=== PATIENT | female | born 1995 | race Caucasian/White ===

== ENCOUNTER 2016-07-29 21:13 | Emergency (ER) | payer SELFPAY ==
[2016-07-29 21:21] VITALS: BP 148/67
--- NOTE | 2016-07-29 21:31 | UC ---
Upper Extremity HPI - HPI Summary HPI Summary: patient slammed hand in care door yesterdy, has pain in the metacarpals and numbness in her pinky - History of Current Complaint Chief Complaint: UCUpperExtremity Stated Complaint: RIGHT HAND INJURY Time Seen by Provider: 07/29/16 21:25 Hx Obtained From: Patient Hx Last Menstrual Period: 07/05/16 ?: No Onset/Duration: Sudden Onset, Lasting Days Severity Initially: Moderate Severity Currently: Moderate Pain Intensity: 6 Pain Scale Used: 0-10 Numeric Location Of Pain: Is Discrete @ - right hand Character: Throbbing Aggravating Factor(s): Movement Alleviating Factor(s): Nothing Associated Signs And Symptoms: Positive: Negative - Allergies/Home Medications Allergies/Adverse Reactions: Allergies Allergy/AdvReac Type Severity Reaction Status Date / Time small animals Allergy Anaphylatic Uncoded 07/29/16 21:21 Shock PMH/Surg Hx/FS Hx/Imm Hx Previously Healthy: Yes Endocrine History Of: Denies: Diabetes Cardiovascular History Of: Denies: Hypertension, Pacemaker/ICD Respiratory History Of: Reports: Asthma GI/ History Of: Denies: Renal Disease Psychological History Of: Reports: Anxiety, Depression - Surgical History Surgical History: Yes Surgery Procedure, Year, and Place: T&A, gallbladder - Family History Known Family History: Positive: Hypertension, Diabetes, Other - she does not know of any problems in family, no skin cancers known. No - Social History Alcohol Use: None Substance Use Type: None Smoking Status (MU): Heavy Every Day Tobacco Smoker Type: Cigarettes, eCigarettes Amount Used/How Often: 1/2 ppd Length of Time of Smoking/Using Tobacco: started age 16 Have You Smoked in the Last Year: Yes Household Exposure Type: Cigarettes - Immunization History Most Recent Influenza Vaccination: Not the 2016/2016 Season Vaccination Up to Date: Yes Review of Systems Constitutional: Negative Skin: Negative Eyes: Negative ENT: Negative Respiratory: Negative Cardiovascular: Negative Gastrointestinal: Negative Genitourinary: Negative Motor: Negative Neurovascular: Negative Musculoskeletal: Arthralgia, Myalgia Neurological: Negative Psychological: Negative All Other Systems Reviewed And Are Negative: Yes Physical Exam Triage Information Reviewed: Yes Appearance: Well-Appearing, Pain Distress, Obese Vital Signs: Initial Vital Signs Temp 97.9 F 07/29/16 21:18 Pulse 79 01/13/17 21:18 Resp 18 07/29/16 21:18 BP 148/67 07/29/16 21:18 Pulse Ox 100 07/29/16 21:18 Vital Signs Reviewed: Yes Eye Exam: Normal Eyes: Positive: Conjunctiva Clear ENT Exam: Normal ENT: Positive: Hearing grossly normal, Pharynx normal, TMs normal Dental Exam: Normal Neck exam: Normal Neck: Positive: Supple, Nontender, No Lymphadenopathy Respiratory Exam: Normal Respiratory: Positive: Chest non-tender, Lungs clear, Normal breath sounds Cardiovascular Exam: Normal Cardiovascular: Positive: RRR, No Murmur, Pulses Normal Abdominal Exam: Normal Abdomen Description: Positive: Nontender, No Organomegaly, Soft Bowel Sounds: Positive: Present Musculoskeletal Exam: Normal Musculoskeletal: Positive: Strength Intact, ROM Limited @ - finger flx and wrist ext Neurological Exam: Normal Neurological: Positive: Alert, Muscle Tone Normal Psychological Exam: Normal Skin Exam: Normal Upper Extremity Course/Dx - Differential Dx/Diagnosis Differential Diagnosis/HQI/PQRI: Fracture (Closed), Strain, Sprain Provider Diagnoses: hand contusion Discharge - Discharge Plan Condition: Stable Disposition: HOME Patient Education Materials: Contusion in Adults (ED) Referrals: Pooja Whipple PA [Primary Care Provider] - Additional Instructions: continue to use ibuprofen and tylenol for pain. use the su wrap to reduce swelling and provide support. The pain should diminish over the next few days.
--- NOTE | 2016-07-29 21:49 | RAD ---
Indication: Pain across the top of the metacarpals and along the fifth proximal phalanx following closing hand in door. Comparison: July 02, 2009 RIGHT wrist Technique: AP and lateral views RIGHT hand. REPORT AND IMPRESSION: Negative for fracture or malalignment. Mild soft tissue swelling most prominent over the dorsum of the hand at the second through fifth digits.
== END 2016-07-29 21:55 | disposition home or self-care (01) ==
LOC: UCCORT 21:13
DX: S60.221A Contusion of right hand, initial encounter (principal); W23.0XXA Caught, crushed, jammed, or pinched between moving objects, initial encounter; Y93.9 Activity, unspecified; Y92.810 Car as the place of occurrence of the external cause; F17.210 Nicotine dependence, cigarettes, uncomplicated
CPT/HCPCS: 99212; G0463

== ENCOUNTER 2016-09-14 09:54 | Emergency (ER) | payer SELFPAY ==
--- NOTE | 2016-09-14 12:30 | UC ---
Complaint Female HPI - HPI Summary HPI Summary: Patient has had left sided abdominal pain with frequent urination for the past 1 week. now has left sided flank pain. denies fever. - History Of Current Complaint Chief Complaint: UCAbdominalPain Stated Complaint: LEFT SIDE PAIN 1 WEEK Time Seen by Provider: 09/14/16 12:16 Hx Obtained From: Patient Hx Last Menstrual Period: 09/04/16 ?: No Onset/Duration: Sudden Onset, Lasting Days Timing: Constant Severity Initially: Moderate Severity Currently: Moderate Pain Intensity: 6 Pain Scale Used: 0-10 Numeric Character: Cramping Aggravating Factor(s): Urination Associated Signs And Symptoms: Positive: Back Pain - Risk Factors Ectopic Risk Factor: Negative Ovarian Torsion Risk Factor: Negative - Allergies/Home Medications Allergies/Adverse Reactions: Allergies Allergy/AdvReac Type Severity Reaction Status Date / Time small animals Allergy Anaphylatic Uncoded 09/14/16 10:09 Shock PMH/Surg Hx/FS Hx/Imm Hx Previously Healthy: Yes Endocrine History Of: Denies: Diabetes Cardiovascular History Of: Denies: Hypertension, Pacemaker/ICD Respiratory History Of: Reports: Asthma GI/ History Of: Denies: Renal Disease Psychological History Of: Reports: Anxiety, Depression - Surgical History Surgical History: Yes Surgery Procedure, Year, and Place: T&A, gallbladder - Family History Known Family History: Positive: Hypertension, Diabetes, Other - she does not know of any problems in family, no skin cancers known. No - Social History Alcohol Use: None Substance Use Type: None Smoking Status (MU): Heavy Every Day Tobacco Smoker Type: Cigarettes, eCigarettes Amount Used/How Often: 1/2 ppd Length of Time of Smoking/Using Tobacco: started age 16 Have You Smoked in the Last Year: Yes Household Exposure Type: Cigarettes - Immunization History Most Recent Influenza Vaccination: Not the 2016/2017 Season Most Recent Tetanus Shot: unknown, maybe 2016 Vaccination Up to Date: Yes Review of Systems Constitutional: Negative Skin: Negative Eyes: Negative ENT: Negative Respiratory: Negative Cardiovascular: Negative Gastrointestinal: Abdominal Pain Genitourinary: Frequency, Urgency Motor: Negative Musculoskeletal: Negative, Myalgia Neurological: Negative Psychological: Negative All Other Systems Reviewed And Are Negative: Yes Physical Exam Triage Information Reviewed: Yes Appearance: No Pain Distress, Well-Nourished, Ill-Appearing Vital Signs: Initial Vital Signs Temp 98.2 F 09/14/16 10:04 Pulse 78 09/14/16 10:04 Resp 16 09/14/16 10:04 BP 150/69 09/14/16 10:04 Pulse Ox 99 09/14/16 10:04 Vital Signs Reviewed: Yes Eye Exam: Normal Eyes: Positive: Conjunctiva Clear ENT Exam: Normal ENT: Positive: Normal ENT inspection, Hearing grossly normal, Pharynx normal, TMs normal Dental Exam: Normal Neck exam: Normal Neck: Positive: Supple, Nontender, No Lymphadenopathy Respiratory Exam: Normal Respiratory: Positive: Chest non-tender, Lungs clear, Normal breath sounds Cardiovascular Exam: Normal Cardiovascular: Positive: RRR, No Murmur, Pulses Normal Abdominal Exam: Normal Abdomen Description: Positive: Nontender, No Organomegaly, Soft Bowel Sounds: Positive: Present Musculoskeletal Exam: Normal Musculoskeletal: Positive: Strength Intact, ROM Intact, No Edema Neurological Exam: Normal Neurological: Positive: Alert, Muscle Tone Normal Psychological Exam: Normal Skin Exam: Normal Complaint Female Dx - Course Course Of Treatment: hx obtained, exam performed, meds reviewed, prescribed keflex for her UTI, recommend follow up in 2 days if symptoms persist or she becomes feverish. - Differential Dx/Diagnosis Differential Diagnosis/HQI/PQRI: Sexually Transmitted Disease, Ureteral Stone, Urinary Tract Infection Provider Diagnoses: UTI. flank Pain Discharge - Discharge Plan Condition: Stable Disposition: HOME Prescriptions: Cephalexin CAP* [Keflex CAP*] 500 mg PO BID #14 cap Patient Education Materials: Flank Pain (ED) Forms: *Work Release Referrals: Pooja Whipple PA [Primary Care Provider] - Additional Instructions: Take the medication as prescribed. Increase your fluid intake and uses ibuprofen for pain. I recommend follow up in 2 days if your symptoms persis or you develop a fever.
[2016-09-14 12:49] VITALS: BP 143/73
== END 2016-09-14 12:49 | disposition home or self-care (01) ==
LOC: UCCORT 09:54
DX: N39.0 Urinary tract infection, site not specified (principal); M54.9 Dorsalgia, unspecified; F17.210 Nicotine dependence, cigarettes, uncomplicated; Z32.02 Encounter for pregnancy test, result negative
CPT/HCPCS: 81025; 87086; 99212; G0463

== ENCOUNTER 2016-11-25 19:06 | Emergency (ER) | payer SELFPAY ==
[2016-11-25 19:40] VITALS: BP 144/81
--- NOTE | 2016-11-25 19:52 | UC ---
Throat Pain/Nasal Filippo HPI - HPI Summary HPI Summary: throat pain, swelling bodyaches and fatigue for 2 weeks. complaining of coughing up thick mucus - History of Current Complaint Chief Complaint: UCGeneralIllness Stated Complaint: ST/ CHEST FILIPPO/HURTS TO SWALLOW Time Seen by Provider: 11/25/16 19:41 Hx Obtained From: Patient Hx Last Menstrual Period: 10/31/16 ?: No Onset/Duration: Sudden Onset, Lasting Days Severity: Moderate Cough: None Associated Signs & Symptoms: Positive: Dysphagia, Sinus Discomfort - Allergies/Home Medications Allergies/Adverse Reactions: Allergies Allergy/AdvReac Type Severity Reaction Status Date / Time small animals Allergy Anaphylatic Uncoded 11/25/16 19:40 Shock Home Medications: Home Medications Omeprazole CAP* [Prilosec CAP* 20 MG] 20 mg PO DAILY 11/25/16 [History Confirmed 11/25/16] PMH/Surg Hx/FS Hx/Imm Hx Previously Healthy: Yes Endocrine History Of: Denies: Diabetes Cardiovascular History Of: Denies: Hypertension, Pacemaker/ICD Respiratory History Of: Reports: Asthma GI/ History Of: Denies: Renal Disease Psychological History Of: Reports: Anxiety, Depression - Surgical History Surgical History: Yes Surgery Procedure, Year, and Place: T&A, gallbladder - Family History Known Family History: Positive: Hypertension, Diabetes, Other - she does not know of any problems in family, no skin cancers known. No - Social History Alcohol Use: None Substance Use Type: None Smoking Status (MU): Heavy Every Day Tobacco Smoker Type: Cigarettes, eCigarettes Amount Used/How Often: 1/2 ppd Length of Time of Smoking/Using Tobacco: started age 16 Have You Smoked in the Last Year: Yes Household Exposure Type: Cigarettes - Immunization History Most Recent Influenza Vaccination: Not the 2016/2017 Season Most Recent Tetanus Shot: unknown, maybe 2016 Vaccination Up to Date: Yes Review of Systems Constitutional: Chills, Fatigue Skin: Negative Eyes: Negative ENT: Sore Throat Respiratory: Negative Cardiovascular: Negative Gastrointestinal: Negative Genitourinary: Negative Motor: Negative Neurovascular: Negative Musculoskeletal: Myalgia Neurological: Headache Psychological: Negative All Other Systems Reviewed And Are Negative: Yes Physical Exam Triage Information Reviewed: Yes Appearance: Well-Nourished, Ill-Appearing, Pain Distress Vital Signs: Initial Vital Signs Temp 99.1 F 11/25/16 19:35 Pulse 85 11/25/16 19:35 Resp 16 11/25/16 19:35 BP 144/81 11/25/16 19:35 Pulse Ox 99 11/25/16 19:35 Vital Signs Reviewed: Yes Eye Exam: Normal Eyes: Positive: Conjunctiva Clear ENT: Positive: Pharyngeal erythema, TM bulging, Tonsillar swelling Dental Exam: Normal Neck exam: Normal Neck: Positive: Supple, Nontender, Enlarged Nodes @ - bilateral cervical, painful Respiratory Exam: Normal Respiratory: Positive: Chest non-tender, Lungs clear, Normal breath sounds Cardiovascular Exam: Normal Cardiovascular: Positive: RRR, No Murmur, Pulses Normal Abdominal Exam: Normal Abdomen Description: Positive: Nontender, No Organomegaly, Soft Bowel Sounds: Positive: Present Musculoskeletal Exam: Normal Musculoskeletal: Positive: Strength Intact, ROM Intact, No Edema Neurological Exam: Normal Neurological: Positive: Alert, Muscle Tone Normal Psychological Exam: Normal Skin Exam: Normal Throat Pain/Nasal Course/Dx - Course Course Of Treatment: hx obtained, exam performed, meds reviewed, given ibuprofen , rapid strep obtained. and is negative, mono spopt obtained, recommend mucinex to breatk up the mucus - Differential Dx/Diagnosis Differential Diagnosis/HQI/PQRI: Influenza, Laryngitis, Otitis Media, Pharyngitis, Sinusitis, URI Provider Diagnoses: pharyngitis. lymphadenopathy. cough. myalgia. possible mononucleosis Discharge - Discharge Plan Condition: Stable Disposition: HOME Patient Education Materials: Pharyngitis (ED) Additional Instructions: 1. your strep was negative 2. You mono test will be availabe tomorrow, we will call with any positive result 3. Meanwhilte, increase your fluid intake,warm fluids help break up the mucous 3, Rest and Ibuprofen for pain
[2016-11-25] MEDS ORDERED: Ibuprofen TAB* 600 MG PO ONE (20:17)
[2016-11-26 14:44] LABS: EBV Response YES
[2016-11-26 14:45] LABS: Mono Internal Control QC Line Present; Mono Kit Lot# 6070004
[2016-11-26 14:46] LABS: Manual Entry Verification AS
[2016-11-29 13:11] LABS: EBV Capsid Ag IgG Ab Positive (Negative); EBV Capsid Ag IgM Ab Negative (Negative)
== END 2016-11-25 20:36 | disposition home or self-care (01) ==
LOC: UCCORT 19:06
DX: J02.9 Acute pharyngitis, unspecified (principal); R59.1 Generalized enlarged lymph nodes; R05 Cough; M79.1 Myalgia; J45.909 Unspecified asthma, uncomplicated; F41.8 Other specified anxiety disorders; Z90.49 Acquired absence of other specified parts of digestive tract; F17.210 Nicotine dependence, cigarettes, uncomplicated
CPT/HCPCS: 36415; 86308; 86664; 86665; 87651; 99212; A9270-GY; G0463

== ENCOUNTER 2017-04-01 21:03 | Emergency (ER) | payer SELFPAY ==
[2017-04-01 21:20] VITALS: BP 149/89
[2017-04-01] MEDS ORDERED: Azithromycin TAB* 250 MG PO ONE (21:46)
[2017-04-01] MEDS ORDERED: LoraTADine TAB(NF) 10 MG TAB (AUTOSUB to CETIRIZINE) PO ONE (21:47)
[2017-04-01] MEDS ORDERED: Benzonatate CAP* 100 MG PO ONE (21:47)
--- NOTE | 2017-04-01 22:12 | UC ---
Respiratory Complaint HPI - HPI Summary HPI Summary: Pt reports sudden onset nasal congestion, sinus pressure, frontal and maxillary , cough and bronchospasm. - History of Current Complaint Chief Complaint: UCRespiratory Stated Complaint: COUGH/CONGESTION/HEADACHE Time Seen by Provider: 04/01/17 21:41 Hx Obtained From: Patient Hx Last Menstrual Period: 02/27/17 ?: No Onset/Duration: Sudden Onset Timing: Constant Severity Initially: Moderate Severity Currently: Moderate Pain Intensity: 0 Pain Scale Used: 0-10 Numeric Character: Cough: Nonproductive Aggravating Factors: Allergens, Deep Breaths, Recumbent Position Alleviating Factors: Nothing Associated Signs And Symptoms: Positive: URI, Nasal Congestion, Sinus Discomfort Related History: Seasonal Allergies - Risk Factors Cardiac Risk Factors: Negative Pseudomonas Risk Factors: Chronic Lung Disease - asthma Tuberculosis Risk Factors: Negative - Allergies/Home Medications Allergies/Adverse Reactions: Allergies Allergy/AdvReac Type Severity Reaction Status Date / Time small animals Allergy Anaphylatic Uncoded 04/01/17 21:20 Shock PMH/Surg Hx/FS Hx/Imm Hx Previously Healthy: Yes Respiratory History: Asthma - Surgical History Surgical History: Yes Surgery Procedure, Year, and Place: T&A, gallbladder - Family History Known Family History: Positive: Hypertension, Diabetes, Other - she does not know of any problems in family, no skin cancers known. No - Social History Occupation: Employed Full-time Lives: With Family Alcohol Use: None Substance Use Type: None Smoking Status (MU): Heavy Every Day Tobacco Smoker Type: Cigarettes, eCigarettes Amount Used/How Often: 1/2 ppd Length of Time of Smoking/Using Tobacco: started age 16 Have You Smoked in the Last Year: Yes Household Exposure Type: Cigarettes - Immunization History Most Recent Influenza Vaccination: Not the 2016/2016 Season Most Recent Tetanus Shot: unknown, maybe 2016 Vaccination Up to Date: Yes Review of Systems Constitutional: Fatigue Skin: Negative Eyes: Negative ENT: Sinus Congestion, Sinus Pain/Tenderness Respiratory: Cough, Other - bronchospasm Cardiovascular: Negative Gastrointestinal: Negative Genitourinary: Negative Motor: Negative Neurovascular: Negative Musculoskeletal: Negative Neurological: Headache Psychological: Negative Is Patient Immunocompromised?: No All Other Systems Reviewed And Are Negative: Yes Physical Exam Triage Information Reviewed: Yes Appearance: Ill-Appearing Vital Signs: Initial Vital Signs Temp 98.3 F 04/01/17 21:15 Pulse 83 04/01/17 21:15 Resp 18 04/01/17 21:15 BP 149/89 04/01/17 21:15 Pulse Ox 99 04/01/17 21:15 Vital Signs Reviewed: Yes Eye Exam: Normal ENT: Positive: Nasal congestion, Other: - maxillary and frontal sinus tenderness Dental Exam: Normal Neck exam: Normal Respiratory Exam: Other Respiratory: Positive: Wheezing Cardiovascular Exam: Normal Musculoskeletal Exam: Normal Neurological Exam: Normal Psychological Exam: Normal Skin Exam: Normal UC Diagnostic Evaluation - Laboratory O2 Sat by Pulse Oximetry: 99 Respiratory Course/Dx - Differential Dx/Diagnosis Differential Diagnosis/HQI/PQRI: Bronchitis, Other - URI Provider Diagnoses: Bronchitis Discharge - Discharge Plan Condition: Stable Disposition: HOME Prescriptions: Azithromycin TAB* [Zithromax TAB (Z-ASHWIN) 250 mg #6 tabs] 250 mg PO DAILY #4 tab Benzonatate CAP* [Tessalon 100 MG CAP*] 100 mg PO Q8H PRN #21 cap PRN Reason: Cough Loratadine & Pseudoephedrine [Loratadine/Pseudoephedrin 10-240 mg] 1 tab PO DAILY #14 tab Patient Education Materials: Acute Bronchitis (ED), Bronchospasm (ED) Forms: *Work Release Referrals: MARIA ISABEL Aldridge [Primary Care Provider] -
== END 2017-04-01 21:58 | disposition home or self-care (01) ==
LOC: UCCORT 21:03
DX: J40 Bronchitis, not specified as acute or chronic (principal); J06.9 Acute upper respiratory infection, unspecified; Z87.891 Personal history of nicotine dependence; Z77.22 Contact with and (suspected) exposure to environmental tobacco smoke (acute) (chronic); Z77.29 Contact with and (suspected) exposure to other hazardous substances
CPT/HCPCS: 99212; A9270-GY; G0463

== ENCOUNTER 2017-04-28 10:55 | Emergency (ER) | payer SELFPAY ==
--- NOTE | 2017-04-28 11:37 | UC ---
Hip/Pelvis Pain - HPI Summary HPI Summary: 21 YEAR OLD FEMALE PRESENTS WITH COMPLAINS OF RIGHT LEG/HIP PAIN WITH NO TRAUMA. - History Of Current Complaint Chief Complaint: UCLowerExtremity Stated Complaint: RIGHT HIP PAIN Time Seen by Provider: 04/28/17 11:18 Hx Obtained From: Patient Hx Last Menstrual Period: 03/30/17 Onset/Duration: Sudden Onset Severity Initially: Moderate Severity Currently: Moderate Character Of Pain: Sharp Aggravating Factor(s): Nothing Alleviating Factor(s): Position - Allergies/Home Medications Allergies/Adverse Reactions: Allergies Allergy/AdvReac Type Severity Reaction Status Date / Time small animals Allergy Anaphylatic Uncoded 04/28/17 11:27 Shock PMH/Surg Hx/FS Hx/Imm Hx Previously Healthy: Yes - Surgical History Surgical History: Yes Surgery Procedure, Year, and Place: T&A, gallbladder - Family History Known Family History: Positive: Hypertension, Diabetes, Other - she does not know of any problems in family, no skin cancers known. No - Social History Alcohol Use: None Substance Use Type: None Smoking Status (MU): Light Every Day Tobacco Smoker Type: Cigarettes, eCigarettes Amount Used/How Often: 1/2 ppd Length of Time of Smoking/Using Tobacco: started age 16 Have You Smoked in the Last Year: Yes Household Exposure Type: Cigarettes - Immunization History Most Recent Influenza Vaccination: Not the 2015/2016 Season Most Recent Tetanus Shot: unknown, maybe 2016 Vaccination Up to Date: Yes Review of Systems Constitutional: Negative Skin: Negative Eyes: Negative ENT: Negative Respiratory: Negative Cardiovascular: Negative Gastrointestinal: Negative Genitourinary: Negative Motor: Negative Neurovascular: Negative Musculoskeletal: Arthralgia, Myalgia, Other: - RIGHT LATERAL LEG/HIP PAIN Neurological: Negative Psychological: Negative All Other Systems Reviewed And Are Negative: Yes Physical Exam Triage Information Reviewed: Yes Vital Signs: Initial Vital Signs Temp 37.0 C 04/28/17 11:15 Pulse 76 04/28/17 11:15 Resp 24 04/28/17 11:15 BP 166/97 04/28/17 11:15 Vital Signs Reviewed: Yes Eye Exam: Normal ENT Exam: Normal Dental Exam: Normal Neck exam: Normal Neck: Positive: 1 Respiratory Exam: Normal Cardiovascular Exam: Normal Abdominal Exam: Normal Musculoskeletal: Negative: Other: - RIGHT LATERAL LEG/HIP PAIN Neurological Exam: Normal Psychological Exam: Normal Skin Exam: Normal Hip Injury Course/Dx - Differential Dx/Diagnosis Provider Diagnoses: RIGHT LATERAL HIP/LEG PAIN Discharge - Discharge Plan Condition: Stable Disposition: HOME Prescriptions: Meloxicam [Mobic] 7.5 mg PO BID #30 tab Methocarbamol TAB* [Robaxin 500 MG TAB*] 500 mg PO TID PRN #30 tab PRN Reason: Spasms - Back Patient Education Materials: Arthralgia (ED), Hip Pain (ED), Piriformis Syndrome (ED) Referrals: MARIA ISABEL Aldridge [Primary Care Provider] - [facility] [place] Physical therapy,PT [Medical Doctor] -
[2017-04-28 12:06] VITALS: BP 142/85
== END 2017-04-28 12:06 | disposition home or self-care (01) ==
LOC: UCCORT 10:55
DX: M25.551 Pain in right hip (principal); F17.210 Nicotine dependence, cigarettes, uncomplicated
CPT/HCPCS: 99212; G0463

== ENCOUNTER 2017-06-28 15:10 | Emergency (ER) | payer SELFPAY ==
[2017-06-28 15:40] VITALS: BP 133/81
--- NOTE | 2017-06-28 16:05 | UC ---
Respiratory Complaint HPI - HPI Summary HPI Summary: Pt c/o of cough, sore throat, generalized malaise, nasal congestion and wheezing X 3 days. - History of Current Complaint Chief Complaint: UCRespiratory Stated Complaint: SORE THROAT/RIGHT EAR/CHEST CONGESTION Time Seen by Provider: 06/28/17 15:57 Hx Obtained From: Patient Hx Last Menstrual Period: 06/23/17 ?: No Onset/Duration: Gradual Onset, Lasting Days, Still Present Severity Initially: Mild Severity Currently: Mild Character: Cough: Nonproductive Aggravating Factors: Exertion, Deep Breaths, Recumbent Position Alleviating Factors: Nothing Associated Signs And Symptoms: Positive: URI, Nasal Congestion - Risk Factors Pulmonary Embolism Risk Factors: Smoking Cardiac Risk Factors: Smoking Pseudomonas Risk Factors: Negative Tuberculosis Risk Factors: Negative - Allergies/Home Medications Allergies/Adverse Reactions: Allergies Allergy/AdvReac Type Severity Reaction Status Date / Time small animals Allergy Anaphylatic Uncoded 06/28/17 15:31 Shock PMH/Surg Hx/FS Hx/Imm Hx Previously Healthy: Yes Respiratory History: Asthma - Surgical History Surgical History: Yes Surgery Procedure, Year, and Place: T&A, gallbladder - Family History Known Family History: Positive: Hypertension, Diabetes, Other - she does not know of any problems in family, no skin cancers known. No - Social History Occupation: Employed Full-time Lives: With Family Alcohol Use: Rare Substance Use Type: None Smoking Status (MU): Light Every Day Tobacco Smoker Type: Cigarettes, eCigarettes Amount Used/How Often: 1/2 ppd Length of Time of Smoking/Using Tobacco: started age 16 Have You Smoked in the Last Year: Yes Household Exposure Type: Cigarettes - Immunization History Most Recent Influenza Vaccination: no Most Recent Tetanus Shot: unknown, maybe 2016 Vaccination Up to Date: Yes Review of Systems Constitutional: Fatigue Skin: Negative Eyes: Negative ENT: Sore Throat Respiratory: Cough Cardiovascular: Negative Gastrointestinal: Negative Genitourinary: Negative Motor: Negative Neurovascular: Negative Musculoskeletal: Negative Neurological: Negative Psychological: Negative Is Patient Immunocompromised?: No All Other Systems Reviewed And Are Negative: Yes Physical Exam Triage Information Reviewed: Yes Appearance: Well-Appearing Vital Signs: Initial Vital Signs Temp 98 F 06/28/17 15:26 Pulse 77 06/28/17 15:26 Resp 14 06/28/17 15:26 BP 133/81 06/28/17 15:26 Pulse Ox 100 12/13/17 15:26 Vital Signs Reviewed: Yes Eye Exam: Normal ENT Exam: Other ENT: Positive: Nasal congestion Dental Exam: Normal Neck exam: Other Neck: Positive: Enlarged Nodes @ - anterior cervical Respiratory Exam: Normal Respiratory: Positive: Decreased breath sounds - bilateral bases Cardiovascular Exam: Normal Musculoskeletal Exam: Normal Neurological Exam: Normal Psychological Exam: Normal Skin Exam: Normal UC Diagnostic Evaluation - Laboratory O2 Sat by Pulse Oximetry: 100 Respiratory Course/Dx - Differential Dx/Diagnosis Differential Diagnosis/HQI/PQRI: Bronchitis, Other - uri Provider Diagnoses: Bronchitis Discharge - Discharge Plan Condition: Stable Disposition: HOME Prescriptions: Azithromycin TAB* [Zithromax TAB (Z-ASHWIN) 250 mg #6 tabs] 2 tab PO .TODAY, THEN 1 DAILY #1 ashwin Benzonatate CAP* [Tessalon 100 MG CAP*] 100 mg PO Q8H PRN #21 cap PRN Reason: Cough Patient Education Materials: Acute Bronchitis (ED) Referrals: MARIA ISABEL Aldridge [Primary Care Provider] - If Needed
== END 2017-06-28 16:16 | disposition home or self-care (01) ==
LOC: UCCORT 15:10
DX: J40 Bronchitis, not specified as acute or chronic (principal); F17.210 Nicotine dependence, cigarettes, uncomplicated
CPT/HCPCS: 99212; G0463

== ENCOUNTER 2017-11-27 16:46 | Emergency (ER) | payer SELFPAY ==
[2017-11-27 17:10] VITALS: BP 157/70
--- NOTE | 2017-11-27 17:24 | UC ---
UC General HPI - HPI Summary HPI Summary: PT IS C/O PAIN TO HER R LOW BACK TOOTH FOR 3-4 DAYS. YESTERDAY, THE AREA AROUND THE TOOTH STARTED TO SWELL. STATES THE TOOTH UIS BAD AND SHE HASN'T BEEN TO A DENTIST SINCE CHILDHOOD. - History of Current Complaint Hx Obtained From: Patient Hx Last Menstrual Period: 10/22/17 Onset/Duration: Gradual Onset Timing: Constant Pain Intensity: 8 Aggravating: CHEWING Alleviating: NOTHING-TAKING MOTRIN Associated Signs & Symptoms: Positive: Edema. Negative: Fever, Headache <Jolly Hernadez - Last Filed: 11/27/17 17:28> <Destiny Madrid - Last Filed: 11/27/17 18:07> - History of Current Complaint Chief Complaint: UCDentalProblem Stated Complaint: FACIAL SWELLING, APPETITE LOSS Time Seen by Provider: 11/27/17 17:14 - Allergy/Home Medications Allergies/Adverse Reactions: Allergies Allergy/AdvReac Type Severity Reaction Status Date / Time small animals Allergy Anaphylatic Uncoded 11/27/17 17:11 Shock PMH/Surg Hx/FS Hx/Imm Hx Respiratory History: Asthma Psychological History: Depression - Surgical History Surgical History: Yes Surgery Procedure, Year, and Place: T&A, gallbladder - Family History Known Family History: Positive: Hypertension, Diabetes, Other - she does not know of any problems in family, no skin cancers known. No - Social History Lives: With Family Alcohol Use: None Substance Use Type: None Smoking Status (MU): Light Every Day Tobacco Smoker Type: Cigarettes, eCigarettes Amount Used/How Often: 1/4 ppd Length of Time of Smoking/Using Tobacco: started age 16 Have You Smoked in the Last Year: Yes Household Exposure Type: Cigarettes - Immunization History Most Recent Influenza Vaccination: Not the 2016/2017 Season Most Recent Tetanus Shot: unknown, maybe 2016 Vaccination Up to Date: Yes <Jolly Hernadez - Last Filed: 11/27/17 17:28> Review of Systems Constitutional: Negative Skin: Negative Eyes: Negative ENT: Dental Pain Respiratory: Negative Cardiovascular: Negative Gastrointestinal: Negative Genitourinary: Negative Motor: Negative Neurovascular: Negative Musculoskeletal: Negative Neurological: Negative Psychological: Negative Is Patient Immunocompromised?: No All Other Systems Reviewed And Are Negative: Yes <Jolly Hernadez - Last Filed: 11/27/17 17:28> Physical Exam Triage Information Reviewed: Yes Appearance: Well-Appearing Vital Signs: Initial Vital Signs Temp 97.3 F 11/27/17 17:03 Pulse 86 11/27/17 17:03 Resp 16 11/27/17 17:03 BP 157/70 11/27/17 17:03 Pulse Ox 99 11/27/17 17:03 Vital Signs Reviewed: Yes Eyes: Positive: Conjunctiva Clear ENT: Positive: Pharynx normal, TMs normal. Negative: Nasal congestion, Nasal drainage Dental: Positive: Other: - R lower posterior molar has extensive decay, the adjacent gum is very tender and swollen but not fluctuant. The parotid and submandibular glands are without swelling or tenderness. No ludwigs angina. Neck: Positive: Supple, Nontender, No Lymphadenopathy Respiratory: Positive: Lungs clear, Normal breath sounds Cardiovascular: Positive: RRR, No Murmur Abdomen Description: Positive: Nontender, No Organomegaly, Soft Bowel Sounds: Positive: Present Musculoskeletal: Positive: ROM Intact Neurological: Positive: Alert Psychological: Positive: Age Appropriate Behavior Skin Exam: Normal <Jolly Hernadez - Last Filed: 11/27/17 17:28> Vital Signs: Initial Vital Signs Temp 97.3 F 11/27/17 17:03 Pulse 86 11/27/17 17:03 Resp 16 11/27/17 17:03 BP 157/70 11/27/17 17:03 Pulse Ox 99 11/27/17 17:03 <Destiny Madrid - Last Filed: 11/27/17 18:07> Course/Dx - Course Course Of Treatment: c/w dental abscess/decay. will tx with antibiotic, nsaid and refer to oral surgeon. - Differential Dx - Multi-Symptom Provider Diagnoses: R lower gum infection. R lower molar with decay. <Jolly Hernadez - Last Filed: 11/27/17 17:28> Discharge - Sign-Out/Discharge Documenting (check all that apply): Discharge/Admit/Transfer - Billing Disposition and Condition Condition: STABLE Disposition: HOME <Jolly Hernadez - Last Filed: 11/27/17 17:28> - Billing Disposition and Condition Condition: STABLE Disposition: HOME <Destiny Madrid - Last Filed: 11/27/17 18:07> - Discharge Plan Condition: Stable Disposition: HOME Prescriptions: Amoxicillin PO (*) [Amoxicillin 875 MG (*)] 875 mg PO BID #20 tab Naproxen [Naprosyn 500 mg tab] 500 mg PO BID #14 tablet Patient Education Materials: Dental Abscess (ED) Referrals: MARIA ISABEL Aldridge [Primary Care Provider] - If Needed Telly Hess MD [Doctor of Dental Medicine] - Additional Instructions: CALL THE DENTAL SERVICE IN AM FOR NEXT AVAILABLE APPOINTMENT. Attestation Statement User Type: Provider - I was available for consult. This patient was seen by the ESTHER. The patient was not presented to, seen by, or examined by me. -Katerin <Destiny Madrid - Last Filed: 11/27/17 18:07>
== END 2017-11-27 17:35 | disposition home or self-care (01) ==
LOC: UCCORT 16:46
DX: K05.10 Chronic gingivitis, plaque induced (principal); K02.9 Dental caries, unspecified
CPT/HCPCS: 99212; G0463

== ENCOUNTER 2018-01-30 10:50 | Emergency (ER) | payer SELFPAY ==
[2018-01-30 11:56] VITALS: BP 143/82
--- NOTE | 2018-01-30 12:13 | UC ---
Hand/Wrist HPI - HPI Summary HPI Summary: left wrist pain x 2 weeks, located radial wrist , radiates to her left forearm no known injury , increase pain with movement, lifting better with rest, - History Of Current Complaint Chief Complaint: UCUpperExtremity Stated Complaint: LT WRIST INJURY Time Seen by Provider: 01/30/18 11:36 Hx Obtained From: Patient Hx Last Menstrual Period: 01/19/18 ?: No Onset/Duration: Gradual Onset, Lasting Weeks - 2, Still Present Severity Initially: Moderate Severity Currently: Moderate Pain Intensity: 8 Character Of Pain: Aching, Throbbing Aggravating Factor(s): Movement, Lifting, Flexion, Extension Alleviating Factor(s): Rest, Ice - Allergies/Home Medications Allergies/Adverse Reactions: Allergies Allergy/AdvReac Type Severity Reaction Status Date / Time small animals Allergy Anaphylatic Uncoded 01/30/18 11:52 Shock Home Medications: Home Medications Ibuprofen TAB* [Advil TAB*] 200 mg PO Q6H PRN 01/30/18 [History Confirmed ] PMH/Surg Hx/FS Hx/Imm Hx Previously Healthy: Yes - Surgical History Surgical History: Yes Surgery Procedure, Year, and Place: T&A, gallbladder - Family History Known Family History: Positive: Hypertension, Diabetes, Other - she does not know of any problems in family, no skin cancers known. No - Social History Alcohol Use: None Substance Use Type: None Smoking Status (MU): Light Every Day Tobacco Smoker Type: Cigarettes Amount Used/How Often: 1/4 ppd Length of Time of Smoking/Using Tobacco: started age 16 Have You Smoked in the Last Year: Yes Household Exposure Type: Cigarettes - Immunization History Most Recent Influenza Vaccination: Not the 2015/2016 Season Most Recent Tetanus Shot: unknown, maybe 2016 Vaccination Up to Date: Yes Review of Systems Constitutional: Negative Skin: Negative Eyes: Negative ENT: Negative Respiratory: Negative Cardiovascular: Negative Is Patient Immunocompromised?: No All Other Systems Reviewed And Are Negative: Yes Physical Exam Triage Information Reviewed: Yes Appearance: Well-Appearing, No Pain Distress, Well-Nourished Vital Signs: Initial Vital Signs Temp 98.5 F 01/30/18 11:48 Pulse 72 01/30/18 11:48 Resp 19 01/30/18 11:48 BP 143/82 01/30/18 11:48 Pulse Ox 100 01/30/18 11:48 Vital Signs Reviewed: Yes Eyes: Positive: Conjunctiva Clear ENT: Positive: Normal ENT inspection, Hearing grossly normal, Pharynx normal Neck: Positive: Supple Respiratory: Positive: Chest non-tender, Lungs clear, Normal breath sounds Cardiovascular: Positive: RRR, No Murmur, Pulses Normal Musculoskeletal: Positive: Other: - left wrist : no swelling, no erythema, + tenderness radial wrist, pain with flexion and extension of the left thum . + pamela test UC Physical Exam Vital Signs On Initial Exam: Initial Vitals Temp Pulse Resp BP Pulse Ox 98.5 F 72 19 143/82 100 01/30/18 11:48 01/30/18 11:48 01/30/18 11:48 01/30/18 11:48 01/30/18 11:48 Hand/Wrist Course/Dx - Differential Dx/Diagnosis Provider Diagnoses: De Quervain's tenosynovitis left Discharge - Sign-Out/Discharge Documenting (check all that apply): Patient Departure - Discharge Plan Condition: Stable Disposition: HOME Prescriptions: Naproxen [Naproxen 500 mg tab] 500 mg PO BID #20 tablet Patient Education Materials: De Quervain Disease (ED) Referrals: Macy Dennis MD [Primary Care Provider] - 2 Weeks - Billing Disposition and Condition Condition: STABLE Disposition: Home
== END 2018-01-30 12:17 | disposition home or self-care (01) ==
LOC: UCCORT 10:50
DX: M65.4 Radial styloid tenosynovitis [de Quervain] (principal); F17.210 Nicotine dependence, cigarettes, uncomplicated
CPT/HCPCS: 99213; G0463

== ENCOUNTER 2018-03-15 19:34 | Emergency (ER) | payer SELFPAY ==
[2018-03-15 20:47] VITALS: BP 152/88
--- NOTE | 2018-03-15 21:22 | UC ---
Lower Extremity/Ankle HPI - HPI Summary HPI Summary: Inversion injury last night when she stepped into a hole off of her steps, falling onto her side. Has had difficulty weight bearing today and had to leave work. No swelling or warmth. Has been using ibuprofen regularly. - History of Current Complaint Chief Complaint: UCLowerExtremity Stated Complaint: RIGHT ANKLE INJURY Time Seen by Provider: 03/15/18 20:52 Hx Obtained From: Patient Hx Last Menstrual Period: 01/22/18 states "does not have sex with guys" Onset/Duration: Sudden Onset, Lasting Hours - 24 Severity Initially: Moderate Severity Currently: Moderate Pain Intensity: 8 Aggravating Factor(s): Standing, Ambulation Alleviating Factor(s): Rest Able to Bear Weight: Yes - Risk Factors Gout Risk Factors: Negative DVT Risk Factors: Negative Septic Arthritis Risk Factor: Negative - Allergies/Home Medications Allergies/Adverse Reactions: Allergies Allergy/AdvReac Type Severity Reaction Status Date / Time small animals Allergy Anaphylatic Uncoded 03/15/18 20:47 Shock Home Medications: Home Medications Albuterol HFA INHALER* [Ventolin HFA Inhaler*] 2 puff INH Q4H PRN 03/15/18 [ History Confirmed 03/15/18] Escitalopram (NF) [Lexapro 20 mg (NF)] 20 mg PO DAILY 03/15/18 [History Confirmed 03/15/18] Fluticasone-Salmeterol 250-50* [Advair Diskus 250-50*] 1 puff INH BID 03/15/18 [ History Confirmed 03/15/18] PMH/Surg Hx/FS Hx/Imm Hx Previously Healthy: Yes - obese Psychological History: Depression - Surgical History Surgical History: Yes Surgery Procedure, Year, and Place: T&A, gallbladder - Family History Known Family History: Positive: Hypertension, Diabetes, Other - she does not know of any problems in family, no skin cancers known. No - Social History Occupation: Employed Full-time - home health aide Lives: With Family Alcohol Use: Rare Substance Use Type: None Smoking Status (MU): Light Every Day Tobacco Smoker Type: Cigarettes Amount Used/How Often: 4 cig daily Length of Time of Smoking/Using Tobacco: started age 16 Have You Smoked in the Last Year: Yes Household Exposure Type: Cigarettes - Immunization History Most Recent Influenza Vaccination: Not the 2016/2017 Season Most Recent Tetanus Shot: unknown, maybe 2016 Vaccination Up to Date: Yes Review of Systems Constitutional: Negative Skin: Negative Eyes: Negative ENT: Negative Respiratory: Negative Cardiovascular: Negative Gastrointestinal: Negative Genitourinary: Negative Motor: Negative Neurovascular: Negative Musculoskeletal: Arthralgia, Calf Tenderness Neurological: Negative Psychological: Negative Is Patient Immunocompromised?: No All Other Systems Reviewed And Are Negative: Yes Physical Exam Triage Information Reviewed: Yes Appearance: Well-Appearing, Pain Distress - mild to moderate., Obese Vital Signs: Initial Vital Signs Temp 98.4 F 03/15/18 20:42 Pulse 69 03/15/18 20:42 Resp 16 03/15/18 20:42 BP 152/88 03/15/18 20:42 Pulse Ox 100 03/15/18 20:42 ENT: Positive: Normal ENT inspection Neck: Positive: Supple, Nontender, No Lymphadenopathy Respiratory: Positive: Lungs clear, Normal breath sounds Cardiovascular: Positive: RRR, No Murmur Musculoskeletal Exam: Other - No swelling or erythema. Tender to palpation medial malleolus, but also anterior ankle joint, Achilles area, midfoot. Calf tender without erythema, swelling or warmth. Musculoskeletal: Positive: No Edema, ROM Limited @ - right ankle. Neurological Exam: Normal Psychological Exam: Normal Skin Exam: Normal Diagnostics - Laboratory Diagnostic Studies Completed/Ordered: xray right ankle normal per Lower Extremity Course/Dx - Course Course Of Treatment: rest and elevation, ibuprofen, off work. - Differential Dx/Diagnosis Differential Diagnosis/HQI/PQRI: Contusion, Fracture (Closed), Sprain Provider Diagnoses: right foot and ankle injury NYD Discharge - Sign-Out/Discharge Documenting (check all that apply): Patient Departure All imaging exams completed and their final reports reviewed: No - Discharge Plan Condition: Stable Disposition: HOME Patient Education Materials: Foot Sprain (ED) Forms: *Work Release Referrals: Macy Dennis MD [Primary Care Provider] - Additional Instructions: There are no focal findings and the ankle xray is negative. This impression will be reviewed by the radiologist tomorrow. There is diffuse pain through the foot. If the pain does not improve with rest and elevation, ensure follow up with your primary care physician or in the emergency room - Billing Disposition and Condition Condition: STABLE Disposition: Home
--- NOTE | 2018-03-16 07:37 | RAD ---
INDICATION: Right ankle pain COMPARISON: None TECHNIQUE: AP, lateral, and oblique views were obtained. FINDINGS: The bony structures, joint spaces, and soft tissues are normal for age. IMPRESSION: NEGATIVE EXAMINATION. R0
--- NOTE | 2018-03-16 10:44 | UC ---
Discharge - Sign-Out/Discharge Documenting (check all that apply): Post-Discharge Follow Up All imaging exams completed and their final reports reviewed: Yes - Discharge Plan Condition: Stable Disposition: HOME Patient Education Materials: Foot Sprain (ED) Forms: *Work Release Referrals: Macy Dennis MD [Primary Care Provider] - Additional Instructions: There are no focal findings and the ankle xray is negative. This impression will be reviewed by the radiologist tomorrow. There is diffuse pain through the foot. If the pain does not improve with rest and elevation, ensure follow up with your primary care physician or in the emergency room - Billing Disposition and Condition Condition: STABLE Disposition: Home
== END 2018-03-15 21:37 | disposition home or self-care (01) ==
LOC: UCCORT 19:34
DX: S99.921A Unspecified injury of right foot, initial encounter (principal); S99.911A Unspecified injury of right ankle, initial encounter; W17.2XXA Fall into hole, initial encounter; Y93.9 Activity, unspecified; Y92.9 Unspecified place or not applicable; F17.210 Nicotine dependence, cigarettes, uncomplicated; F32.9 Major depressive disorder, single episode, unspecified
CPT/HCPCS: 99212; G0463

== ENCOUNTER 2018-04-28 11:42 | Emergency (ER) | payer SELFPAY ==
[2018-04-28 12:56] VITALS: BP 139/75
--- NOTE | 2018-04-28 13:19 | UC ---
Respiratory Complaint HPI - HPI Summary HPI Summary: 22 year old female with cough . CHEST CONGESTION, OCCASIONALLY PRODUCTIVE COUGH , CHEST TIGHTNESS WHEN COUGHING, COUGHING UNTIL VOMITING AND BILATERAL EAR PAIN X1 WEEK. Patient states that it has been going on for about 1 week and not getting better. She has a history of asthma and uses her albuterol inhaler as needed. Patient states she has not had her whooping cough shot in a long time. She states that she has been vomiting from the coughing. She is not aware of any exposure to illness. [ End ] - History of Current Complaint Chief Complaint: UCGeneralIllness Stated Complaint: CHEST CONGESTION, COUGH Time Seen by Provider: 04/28/18 13:11 Hx Obtained From: Patient Hx Last Menstrual Period: 04/20/18 Onset/Duration: Gradual Onset Timing: Constant Severity Initially: Mild Severity Currently: Moderate Pain Intensity: 8 Character: Cough: Productive - Allergies/Home Medications Allergies/Adverse Reactions: Allergies Allergy/AdvReac Type Severity Reaction Status Date / Time small animals Allergy Anaphylatic Uncoded 03/15/18 20:47 Shock Home Medications: Home Medications Ibuprofen 800 mg PO ONCE 04/28/18 [History Confirmed 04/28/18] PMH/Surg Hx/FS Hx/Imm Hx Previously Healthy: Yes Respiratory History: Asthma - Surgical History Surgical History: Yes Surgery Procedure, Year, and Place: T&A, gallbladder - Family History Known Family History: Positive: Hypertension, Diabetes, Other - she does not know of any problems in family, no skin cancers known. No - Social History Occupation: Employed Full-time Alcohol Use: Rare Substance Use Type: None Smoking Status (MU): Former Smoker Type: Cigarettes Amount Used/How Often: 4 cig daily Length of Time of Smoking/Using Tobacco: started age 16 Have You Smoked in the Last Year: Yes When Did the Patient Quit Smoking/Using Tobacco: 02/2018 Household Exposure Type: Cigarettes - Immunization History Most Recent Influenza Vaccination: Not the 2016/2017 Season Most Recent Tetanus Shot: unknown, maybe 2016 Vaccination Up to Date: Yes Review of Systems Constitutional: Fatigue ENT: Sore Throat, Ear Ache, Nasal Discharge, Sinus Congestion, Sinus Pain/ Tenderness Respiratory: Shortness Of Breath, Cough Is Patient Immunocompromised?: No All Other Systems Reviewed And Are Negative: Yes Physical Exam Triage Information Reviewed: Yes Appearance: Well-Appearing, No Pain Distress, Well-Nourished Vital Signs: Initial Vital Signs Temp 98.3 F 04/28/18 12:47 Pulse 107 04/28/18 12:47 Resp 18 04/28/18 12:47 BP 139/75 04/28/18 12:47 Pulse Ox 99 04/28/18 12:47 Vital Signs Reviewed: Yes Eye Exam: Normal Eyes: Positive: Conjunctiva Clear ENT Exam: Normal ENT: Positive: Nasal drainage, TM dull Neck exam: Normal Respiratory: Positive: Chest non-tender, Lungs clear, Normal breath sounds, No respiratory distress, No accessory muscle use. Negative: Respiratory distress, Crackles, Rhonchi, Stridor Cardiovascular Exam: Normal Musculoskeletal Exam: Normal Neurological Exam: Normal Psychological Exam: Normal Skin Exam: Normal UC Diagnostic Evaluation - Laboratory O2 Sat by Pulse Oximetry: 99 Respiratory Course/Dx - Course Course Of Treatment: Based on her duration of symptoms and history of respiratory disease we will advise to start antibiotics. She does have an interaction between the azithromycin and her antidepressants. Based on the duration of cough with the emesis associated with it and no recent vaccination will cover pertussis. Patient is aware of side effects from medications. - Differential Dx/Diagnosis Differential Diagnosis/HQI/PQRI: Bronchitis, Laryngitis, Lower Resp Infection, Sinusitis Provider Diagnoses: URI Discharge - Sign-Out/Discharge Documenting (check all that apply): Patient Departure All imaging exams completed and their final reports reviewed: No Studies - Discharge Plan Condition: Good Disposition: HOME Referrals: Macy Dennis MD [Primary Care Provider] - - Billing Disposition and Condition Condition: GOOD Disposition: Home
== END 2018-04-28 13:38 | disposition home or self-care (01) ==
LOC: UCCORT 11:42
DX: J06.9 Acute upper respiratory infection, unspecified (principal); J45.909 Unspecified asthma, uncomplicated; Z87.891 Personal history of nicotine dependence
CPT/HCPCS: 99212; G0463

== ENCOUNTER 2018-09-20 17:57 | Emergency (ER) | payer SELFPAY ==
[2018-09-20 19:10] VITALS: BP 144/90
--- NOTE | 2018-09-20 19:17 | UC ---
Respiratory Complaint HPI - HPI Summary HPI Summary: 22-year-old woman comes in with a chief complaint of upper respiratory tract infection and bronchitis symptoms along with asthma symptoms. By 3 weeks ago patient had an asthma exacerbation that got better with prednisone and albuterol. After she was done with the prednisone symptoms returned and now she is having yellow and green rhinorrhea and continued feel short of breath. The albuterol helps with the shortness breath. She feels congestion in her chest now. No recent fevers. Activity makes his shortness breath worse. - History of Current Complaint Chief Complaint: UCGeneralIllness Stated Complaint: COUGH,CONGESTION,CHILLS Time Seen by Provider: 09/20/18 19:09 Hx Last Menstrual Period: 08/19/18 Pain Intensity: 8 - Allergies/Home Medications Allergies/Adverse Reactions: Allergies Allergy/AdvReac Type Severity Reaction Status Date / Time small animals Allergy Anaphylatic Uncoded 09/20/18 19:04 Shock Home Medications: Home Medications Ibuprofen TAB* [Advil TAB*] 200 mg PO Q6H PRN 09/20/18 [History Confirmed ] PMH/Surg Hx/FS Hx/Imm Hx Previously Healthy: Yes Respiratory History: Asthma - Surgical History Surgical History: Yes Surgery Procedure, Year, and Place: T&A, gallbladder - Family History Known Family History: Positive: Hypertension, Diabetes, Other - she does not know of any problems in family, no skin cancers known. No - Social History Alcohol Use: Rare Substance Use Type: None Smoking Status (MU): Former Smoker Type: Cigarettes Amount Used/How Often: 4 cig daily Length of Time of Smoking/Using Tobacco: started age 16 Have You Smoked in the Last Year: Yes When Did the Patient Quit Smoking/Using Tobacco: 07/2018 Household Exposure Type: Cigarettes - Immunization History Most Recent Influenza Vaccination: Not the 2016/2017 Season Most Recent Tetanus Shot: unknown, maybe 2016 Vaccination Up to Date: Yes Review of Systems All Other Systems Reviewed And Are Negative: Yes Constitutional: Positive: Negative Skin: Positive: Negative Eyes: Positive: Negative ENT: Positive: Nasal Discharge, Sinus Congestion Respiratory: Positive: Shortness Of Breath, Cough, Other - WHEEZING Cardiovascular: Positive: Negative Gastrointestinal: Positive: Negative Motor: Positive: Negative Neurovascular: Positive: Negative Musculoskeletal: Positive: Negative Neurological: Positive: Negative Psychological: Positive: Negative Is Patient Immunocompromised?: No Physical Exam Triage Information Reviewed: Yes Appearance: No Pain Distress, Well-Nourished, Ill-Appearing - MILD Vital Signs: Initial Vital Signs Temp 97.5 F 09/20/18 19:05 Pulse 86 09/20/18 19:05 Resp 18 09/20/18 19:05 BP 144/90 09/20/18 19:05 Pulse Ox 100 09/20/18 19:05 Vital Signs Reviewed: Yes Eye Exam: Normal Eyes: Positive: Conjunctiva Clear ENT: Positive: Pharyngeal erythema, Nasal congestion, Nasal drainage, TMs normal Neck exam: Normal Neck: Positive: Supple, Nontender Respiratory: Positive: Lungs clear, Normal breath sounds, No respiratory distress Cardiovascular: Positive: RRR Musculoskeletal Exam: Normal Musculoskeletal: Positive: Strength Intact, ROM Intact, No Edema, Other: - NO CALF TENDERNESS Neurological Exam: Normal Neurological: Positive: Alert, Muscle Tone Normal Psychological Exam: Normal Psychological: Positive: Age Appropriate Behavior Skin Exam: Normal Respiratory Course/Dx - Differential Dx/Diagnosis Provider Diagnosis: Bronchitis, Asthma Discharge - Sign-Out/Discharge Documenting (check all that apply): Patient Departure All imaging exams completed and their final reports reviewed: No Studies - Discharge Plan Condition: Stable Disposition: HOME Prescriptions: Albuterol HFA INHALER* [Ventolin HFA Inhaler*] 2 puff INH Q4H PRN #1 mdi PRN Reason: Wheezing Azithromyxin ASHWIN (NF) [Z-Ashwin (Zithromax) 250 mg tabs #6] 2 tab PO .TODAY, THEN 1 DAILY #6 tab Patient Education Materials: Asthma (ED), Acute Bronchitis (ED) Forms: *Work Release Referrals: Macy Dennis MD [Primary Care Provider] - Additional Instructions: FOLLOW UP WITH YOUR DOCTOR IF NOT COMPLETELY IMPROVED. GET RECHECKED FOR ANY WORSENING OF YOUR CONDITION OR QUESTIONS OR CONCERNS. - Billing Disposition and Condition Condition: STABLE Disposition: Home
== END 2018-09-20 19:24 | disposition home or self-care (01) ==
LOC: UCCORT 17:57
DX: J45.909 Unspecified asthma, uncomplicated (principal); Z91.09 Other allergy status, other than to drugs and biological substances; Z87.891 Personal history of nicotine dependence
CPT/HCPCS: 99212; G0463

== ENCOUNTER 2018-10-19 19:08 | Emergency (ER) | payer SELFPAY ==
[2018-10-19 19:56] VITALS: BP 153/82
--- NOTE | 2018-10-19 20:54 | UC ---
Respiratory Complaint HPI - HPI Summary HPI Summary: Per international flight attendant: "PRODUCTIVE COUGH W/ GREEN PHLEGM, FEVER, AND HEADACHE X1 WEEK. TAKING IBUPROFEN PRN W/ FEVER-RELEIF. " -her GF has bronchitis -midl wheezing. uses alb when gets sick and has some at home. + pain pressure forheada dn cheeks. most rt forehead. - History of Current Complaint Chief Complaint: UCRespiratory Stated Complaint: HEADACHE/FEVER/COUGH/CONGESTION Time Seen by Provider: 10/19/18 20:47 Hx Last Menstrual Period: 09/24/18 Pain Intensity: 8 - Allergies/Home Medications Allergies/Adverse Reactions: Allergies Allergy/AdvReac Type Severity Reaction Status Date / Time small animals Allergy Anaphylatic Uncoded 10/19/18 19:52 Shock PMH/Surg Hx/FS Hx/Imm Hx Previously Healthy: Yes - Surgical History Surgical History: Yes Surgery Procedure, Year, and Place: T&A, gallbladder - Family History Known Family History: Positive: Hypertension, Diabetes, Other - she does not know of any problems in family, no skin cancers known. No - Social History Alcohol Use: Rare Substance Use Type: None Smoking Status (MU): Former Smoker Type: Cigarettes Amount Used/How Often: 4 cig daily Length of Time of Smoking/Using Tobacco: started age 16 Have You Smoked in the Last Year: Yes When Did the Patient Quit Smoking/Using Tobacco: 07/2018 Household Exposure Type: Cigarettes - Immunization History Most Recent Influenza Vaccination: Not the 2015/2016 Season Most Recent Tetanus Shot: unknown, maybe 2016 Vaccination Up to Date: Yes Review of Systems All Other Systems Reviewed And Are Negative: Yes Constitutional: Positive: Fatigue Skin: Positive: Negative Eyes: Positive: Negative ENT: Positive: Nasal Discharge, Sinus Congestion, Sinus Pain/Tenderness Respiratory: Positive: Cough Cardiovascular: Positive: Negative Gastrointestinal: Positive: Negative Genitourinary: Positive: Negative Motor: Positive: Negative Neurovascular: Positive: Negative Musculoskeletal: Positive: Negative Neurological: Positive: Negative Psychological: Positive: Negative Is Patient Immunocompromised?: No Physical Exam Triage Information Reviewed: Yes Appearance: Well-Nourished, Ill-Appearing - mild Vital Signs: Initial Vital Signs Temp 98.5 F 10/19/18 19:52 Pulse 77 10/19/18 19:52 Resp 16 10/19/18 19:52 BP 153/82 10/19/18 19:52 Pulse Ox 100 10/19/18 19:52 Vital Signs Reviewed: Yes Eye Exam: Normal ENT: Positive: Pharyngeal erythema, TMs normal, Sinus tenderness, Uvula midline. Negative: TM bulging, TM dull, TM red, Tonsillar swelling Neck exam: Normal Neck: Positive: Supple, Nontender, No Lymphadenopathy Respiratory Exam: Normal Respiratory: Positive: Lungs clear, Normal breath sounds, No respiratory distress, No accessory muscle use. Negative: Crackles, Rhonchi, Stridor, Wheezing Cardiovascular Exam: Normal Cardiovascular: Positive: RRR Abdominal Exam: Normal Musculoskeletal Exam: Normal Neurological Exam: Normal Psychological Exam: Normal Skin Exam: Normal Respiratory Course/Dx - Differential Dx/Diagnosis Differential Diagnosis/HQI/PQRI: Lower Resp Infection, Sinusitis Provider Diagnosis: Sinusitis Discharge - Sign-Out/Discharge Documenting (check all that apply): Patient Departure All imaging exams completed and their final reports reviewed: No Studies - Discharge Plan Condition: Stable Disposition: HOME Prescriptions: Amoxicillin PO (*) [Amoxicillin 875 MG (*)] 875 mg PO BID #20 tab Patient Education Materials: Sinusitis (ED) Referrals: No Primary Care Phys,[facility]OPCP [Primary Care Provider] - [facility] [Provider Group] - 1 Week Additional Instructions: Make sure to take a probiotic daily while on antibiotics to help prevent a potential complication of antibiotic use called c diff. Some well known brands that can be found OTC are florastor, align and [employer] [facility]. Make sure to complete the entire prescription unless advised otherwise by your health care provider - Billing Disposition and Condition Condition: STABLE Disposition: Home
== END 2018-10-19 21:03 | disposition home or self-care (01) ==
LOC: UCCORT 19:08
DX: J32.9 Chronic sinusitis, unspecified (principal); Z91.09 Other allergy status, other than to drugs and biological substances; Z87.891 Personal history of nicotine dependence
CPT/HCPCS: 99212; G0463

== ENCOUNTER 2019-02-12 19:50 | Emergency (ER) | payer SELFPAY ==
[2019-02-12 20:52] VITALS: BP 147/74
--- NOTE | 2019-02-12 21:19 | UC ---
General HPI - HPI Summary HPI Summary: pt punched a counter with r hand this am. c/o ongoing pain ulnar side. +bruising and swelling. - History of Current Complaint Chief Complaint: UCUpperExtremity Stated Complaint: R HAND INJ - MAINLY SMALL FINGER Time Seen by Provider: 02/12/19 20:50 Hx Obtained From: Patient Hx Last Menstrual Period: 01/21/19 Onset/Duration: Sudden Onset Timing: Constant Pain Intensity: 9 Associated Signs & Symptoms: Positive: Edema. Negative: Fever, Weakness - Allergy/Home Medications Allergies/Adverse Reactions: Allergies Allergy/AdvReac Type Severity Reaction Status Date / Time small animals Allergy Anaphylatic Uncoded 02/12/19 20:53 Shock Home Medications: Home Medications Albuterol HFA INHALER* [Ventolin HFA Inhaler*] 2 puff INH Q4H PRN 02/12/19 [ History Confirmed 02/12/19] PMH/Surg Hx/FS Hx/Imm Hx Previously Healthy: Yes - Surgical History Surgical History: Yes Surgery Procedure, Year, and Place: T&A, gallbladder - Family History Known Family History: Positive: Hypertension, Diabetes, Other - she does not know of any problems in family, no skin cancers known. No - Social History Alcohol Use: Rare Substance Use Type: None Smoking Status (MU): Former Smoker Type: Smokeless Tobacco Amount Used/How Often: 1/2 can daily Length of Time of Smoking/Using Tobacco: started age 16 Have You Smoked in the Last Year: Yes When Did the Patient Quit Smoking/Using Tobacco: 07/2018 Household Exposure Type: Cigarettes - Immunization History Most Recent Influenza Vaccination: Not the 2016/2016 Season Most Recent Tetanus Shot: unknown, maybe 2016 Vaccination Up to Date: Yes Review of Systems All Other Systems Reviewed And Are Negative: No Constitutional: Negative: Fever Skin: Negative: Rash Neurological: Negative: Weakness, Paresthesia, Numbness Physical Exam Triage Information Reviewed: Yes Appearance: Well-Appearing Vital Signs: Initial Vital Signs Temp 98.3 F 02/12/19 20:47 Pulse 76 02/12/19 20:47 Resp 17 02/12/19 20:47 BP 147/74 02/12/19 20:47 Pulse Ox 100 02/12/19 20:47 Vital Signs Reviewed: Yes Cardiovascular: Positive: RRR Musculoskeletal: Positive: Other: - RUE: shoulder, elbow and wrist are non tender. R hand has mild swelling, brusing and tendernss over ulnar side. fingers have full s/v/m function. Neurological: Positive: Alert Psychological: Positive: Age Appropriate Behavior Skin Exam: Normal Diagnostics - Radiology No standard instances Radiology Interpretation Completed By: ED Physician - hand=no fx Course/Dx - Differential Dx - Multi-Symptom Differential Diagnoses: Other - no fx/dislocation seen on wet read. no concern for infection. - Diagnoses Provider Diagnosis: Contusion of right hand including fingers Discharge - Sign-Out/Discharge Documenting (check all that apply): Patient Departure All imaging exams completed and their final reports reviewed: No - Discharge Plan Condition: Stable Disposition: HOME Patient Education Materials: Contusion in Adults (ED) Referrals: Moses Ho MD [Medical Doctor] - If Needed - Billing Disposition and Condition Condition: STABLE Disposition: Home - Attestation Statements Provider Attestation: Per institutional requirements, I have reviewed the chart, however, I was not consulted specifically or made aware of this patient by the midlevel provider. I did not personally evaluate, interact with , or disposition this patient.
--- NOTE | 2019-02-13 08:48 | UC ---
- Progress Note Progress Note: wet read correct Course/Dx - Diagnoses Provider Diagnoses: Contusion of right hand including fingers Discharge - Sign-Out/Discharge Documenting (check all that apply): Post-Discharge Follow Up All imaging exams completed and their final reports reviewed: Yes - Discharge Plan Condition: Stable Disposition: HOME Patient Education Materials: Contusion in Adults (ED) Referrals: Moses Ho MD [Medical Doctor] - If Needed - Billing Disposition and Condition Condition: STABLE Disposition: Home
--- NOTE | 2019-02-13 13:14 | UC ---
Course/Dx - Diagnoses Provider Diagnoses: Contusion of right hand including fingers Discharge - Sign-Out/Discharge Documenting (check all that apply): Post-Discharge Follow Up All imaging exams completed and their final reports reviewed: Yes - Discharge Plan Condition: Stable Disposition: HOME Patient Education Materials: Contusion in Adults (ED) Referrals: Moses Ho MD [Medical Doctor] - If Needed - Billing Disposition and Condition Condition: STABLE Disposition: Home
== END 2019-02-12 21:50 | disposition home or self-care (01) ==
LOC: UCCORT 19:50
DX: S60.00XA Contusion of unspecified finger without damage to nail, initial encounter (principal); S60.221A Contusion of right hand, initial encounter; W22.09XA Striking against other stationary object, initial encounter; Y92.9 Unspecified place or not applicable; Z87.891 Personal history of nicotine dependence
CPT/HCPCS: 99211; G0463